=== PATIENT | female | born 1960 | race Caucasian/White ===

== ENCOUNTER 2019-01-13 09:36 | Inpatient (IN) | payer BC ==
[2019-01-13 10:05] VITALS: BMI 34.7
--- NOTE | 2019-01-13 12:52 | HP ---
CIWA Score Nausea/Vomitin Muscle Tremors: 2 Anxiety: 4-Mod. Anxious/Guarded Agitation: 4-Moderately Restless Paroxysmal Sweats: No Perspiration Orientation: 1-Uncertain about Date Tacttile Disturbances: 0-None Auditory Disturbances: 0-None Visual Disturbances: 0-None Headache: 0-None Present CIWA-Ar Total Score: 13 - Admission Criteria OASAS Guidelines: Admission for Medically Managed Detox: Requires at least one of the followin. CIWA greater than 12 2. Seizures within the past 24 hours 3. Delirium tremens within the past 24 hours 4. Hallucinations within the past 24 hours 5. Acute intervention needed for co occurring medical disorder 6. Acute intervention needed for co occurring psychiatric disorder 7. Severe withdrawal that cannot be handled at a lower level of care (continued vomiting, continued diarrhea, abnormal vital signs) requiring intravenous medication and/or fluids 8. Admission ROS BHS - HPI Allergies/Adverse Reactions: Allergies Allergy/AdvReac Type Severity Reaction Status Date / Time No Known Allergies Allergy Verified 01/13/19 09:57 History of Present Illness: 58 y.o. female reports 1 bottle rum x 3 x 12-pk and 1 bottle wine in the last 5 days , prior sobriety intermittently x 3 years first age of use teens , increased since late 20's , denies seizures , denies blackouts , + tremors if not drinking , starts drinking "around the clock since Saturday " , current SHELBY 0.223 , latest use this morning, currently tearful and upset. 1/2 ppd PMHX ;OCD , panic d/o , depression denies SA , reports current depression SI since her father in 2015 , previously on Lexapro stopped taking meds , reports d/c from program where she saw psychiatrist x once due to relapse PSHx : cervical conization Exam Limitations: Clinical Condition, Intoxication - Ebola screening Have you traveled outside of the country in the last 21 days: No Have you had contact with anyone from an Ebola affected area: No - Review of Systems Constitutional: Loss of Appetite EENT: reports: Other (glasses) Respiratory: reports: Shortness of Breath (reports 2/2 panic d/o) Cardiac: reports: No Symptoms Reported GI: reports: See HPI, Diarrhea, Poor Appetite : reports: No Symptoms Reported Musculoskeletal: reports: Back Pain Integumentary: reports: No Symptoms Reported Neuro: reports: See HPI Endocrine: reports: No Symptoms Reported Psychiatric: reports: Orientated x3, Agitated, Anxious, Depressed Patient History - Smoking Cessation Smoking history: Current every day smoker Have you smoked in the past 12 months: Yes Hx Chewing Tobacco Use: No Initiated information on smoking cessation: No - Substances abused Alcohol Substance route: Oral Frequency: Daily Amount used: 16OZ BOTTLE OF RUM/ 3-12PCKS BEER Age of first use: 14 Date of last use: 01/13/19 Family Disease History - Family Disease History Family History: Unable to Obtain (adopted) Admission Physical Exam BHS - Vital Signs Vital Signs: Vital Signs - 24 hr 01/13/19 01/13/19 09:57 11:59 Temperature 98 F 98 F Pulse Rate 83 83 Respiratory 18 18 Rate Blood Pressure 162/103 H 162/103 H - Physical General Appearance: Yes: Moderate Distress, Intoxicated, Anxious HEENTM: Yes: EOMI, Hearing grossly Normal, Normocephalic, Normal Voice Respiratory: Yes: Chest Non-Tender, Lungs Clear, Normal Breath Sounds, No Respiratory Distress, No Accessory Muscle Use Neck: Yes: No masses,lesions,Nodules, Trachea in good position Cardiology: Yes: Regular Rhythm, Regular Rate, S1, S2 Abdominal: Yes: Non Tender, Soft, Protuberent Musculoskeletal: Yes: Gait Steady Extremities: Yes: Normal Range of Motion, Non-Tender Neurological: Yes: Alert, Motor Strength 5/5, Depressed Affect Integumentary: Yes: Warm - Diagnostic (1) Alcohol intoxication Current Visit: Yes Status: Acute Qualifiers: Complication of substance-induced condition: uncomplicated Qualified Code(s ): F10.920 - Alcohol use, unspecified with intoxication, uncomplicated Breathalyzer - Breathalyzer Breathalyzer: 0.223 Urine Drug Screen - Test Device Lot number: [id number] Expiration date: 09/26/20 - Control Is test valid?: Yes - Results Drug screen NEGATIVE: Yes Inpatient Rehab Admission - Rehab Decision to Admit Inpatient rehab admission?: No
[2019-01-13] MEDS ORDERED: MELATONIN 5 MG TABLETS PO PRN (13:29)
[2019-01-13] MEDS ORDERED: IBUPROFEN 400 MG TABLET (FP) PO PRN (13:29)
[2019-01-13] MEDS ORDERED: MENTHOL/PHENOL 1 EACH UD MM PRN (13:29)
[2019-01-13] MEDS ORDERED: MAG HYDROX/AL HYDROX/SIMETH 30 ML UNIT-DOSE CUP PO PRN (13:29)
[2019-01-13] MEDS ORDERED: MAGNESIUM CITRATE 300 ML BOTTLE PO PRN (13:29)
[2019-01-13] MEDS ORDERED: ACETAMINOPHEN 325 MG TABLET (FP) PO PRN ×2 (13:29)
[2019-01-13] MEDS ORDERED: MAGNESIUM HYDROX 2400MG/30ML ORAL SUSPENSION 30 ML CUP PO PRN (13:29)
[2019-01-13] MEDS ORDERED: chlordiazePOXIDE HCL 25 MG CAPSULE PO ONE (13:30)
[2019-01-13] MEDS ORDERED: chlordiazePOXIDE HCL 25 MG CAPSULE PO PRN (13:30)
[2019-01-13] MEDS: hydrOXYzine PAMOATE 25 MG CAPSULE (FP) PO PRN (14:52)
[2019-01-13] MEDS: chlordiazePOXIDE HCL 25 MG CAPSULE PO SCH ×2 (17:55→22:14)
[2019-01-13] MEDS: THIAMINE HCL 100 MG TABLET (FP) PO SCH (22:14)
[2019-01-13] MEDS: METHOCARBAMOL 500 MG TABLET PO PRN (22:14)
[2019-01-13] MEDS: BISMUTH SUBSALICYLATE 524 MG/30 ML UD PO PRN (22:51)
[2019-01-14] MEDS: BISMUTH SUBSALICYLATE 524 MG/30 ML UD PO PRN ×3 (02:38→13:27)
[2019-01-14] MEDS: chlordiazePOXIDE HCL 25 MG CAPSULE PO SCH ×4 (06:43→22:41)
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
[2019-01-14 09:50] LABS: HEMATOCRIT 38.2 % (32.4-45.2); HEMOGLOBIN 13.2 GM/dL (10.7-15.3); MCH 31.1 pg (25.7-33.7); MCHC 34.5 g/dl (32.0-36.0); MEAN CELL VOLUME 90.1 fl (80-96); MEAN PLT VOLUME 6.9 fl (7.5-11.1); PLATELET COUNT 230 K/MM3 (134-434); RBC 4.23 M/mm3 (3.60-5.2); RDW 13.5 % (11.6-15.6); WHITE BLOOD COUNT 5.9 K/mm3 (4.0-10.0)
[2019-01-14 10:01] LABS: BLOOD UREA NITROGEN 8.8 mg/dL (7-18); CREATININE 0.8 mg/dL (0.55-1.3); TOT PROT 6.9 g/dl (6.4-8.2)
[2019-01-14] MEDS: METHOCARBAMOL 500 MG TABLET PO PRN (10:30)
[2019-01-14] MEDS: hydrOXYzine PAMOATE 25 MG CAPSULE (FP) PO PRN ×2 (10:30→16:54)
[2019-01-14] MEDS: PRENATAL VITAMINS W/ FOLIC ACID TABLET (FP) PO SCH (11:46)
--- NOTE | 2019-01-14 12:28 | PN ---
S CIWA - CIWA Score Nausea/Vomitin-No Nausea/No Vomiting Muscle Tremors: 3 Anxiety: 4-Mod. Anxious/Guarded Agitation: 4-Moderately Restless Paroxysmal Sweats: 3 Orientation: 0-Oriented Tacttile Disturbances: 0-None Auditory Disturbances: 0-None Visual Disturbances: 0-None Headache: 0-None Present CIWA-Ar Total Score: 14 BHS Progress Note (SOAP) Subjective: agitation restless irritable body aches anxiety interrupted sleep Objective: 01/14/19 12:28 Vital Signs Temperature 97.9 F 01/14/19 09:23 Pulse Rate 79 01/14/19 09:23 Respiratory Rate 18 01/14/19 09:23 Blood Pressure 146/89 01/14/19 09:23 O2 Sat by Pulse Oximetry (%) Laboratory Tests 01/14/19 01/14/19 01/14/19 08:20 08:20 08:20 WBC 5.9 RBC 4.23 Hgb 13.2 Hct 38.2 MCV 90.1 MCH 31.1 MCHC 34.5 RDW 13.5 Plt Count 230 MPV 6.9 L Sodium 136 Potassium 4.0 Chloride 101 Carbon Dioxide 29 Anion Gap 6 L BUN 8.8 Creatinine 0.8 Est GFR (CKD-EPI)AfAm 95.52 Est GFR (CKD-EPI)NonAf 82.42 Random Glucose 89 Calcium 9.0 Total Bilirubin 1.0 AST 19 ALT 21 Alkaline Phosphatase 119 H Total Protein 6.9 Albumin 4.0 RPR Titer Nonreactive labs noted aaox3 ambulating no acute distress Assessment: 01/14/19 12:28 withdrawals Plan: continue detox increase fluids
[2019-01-14] MEDS: THIAMINE HCL 100 MG TABLET (FP) PO SCH (22:42)
[2019-01-14] MEDS: ESCITALOPRAM OXALATE 10 MG TABLET (FP) PO SCH (22:42)
[2019-01-15] MEDS: chlordiazePOXIDE HCL 25 MG CAPSULE PO SCH ×4 (06:02→22:32)
[2019-01-15] MEDS: hydrOXYzine PAMOATE 25 MG CAPSULE (FP) PO PRN ×3 (06:04→20:33)
[2019-01-15] MEDS: PRENATAL VITAMINS W/ FOLIC ACID TABLET (FP) PO SCH (11:20)
[2019-01-15] MEDS: METHOCARBAMOL 500 MG TABLET PO PRN ×2 (11:21→17:18)
--- NOTE | 2019-01-15 15:06 | PN ---
S CIWA - CIWA Score Nausea/Vomitin-No Nausea/No Vomiting Muscle Tremors: 3 Anxiety: 3 Agitation: 3 Paroxysmal Sweats: 3 Orientation: 0-Oriented Tacttile Disturbances: 0-None Auditory Disturbances: 0-None Visual Disturbances: 0-None Headache: 0-None Present CIWA-Ar Total Score: 12 BHS Progress Note (SOAP) Subjective: sweats anxiety restless Objective: 01/15/19 15:02 Vital Signs Temperature 98.2 F 01/15/19 14:04 Pulse Rate 80 01/15/19 14:04 Respiratory Rate 01/15/19 14:04 Blood Pressure 134/80 01/15/19 14:04 O2 Sat by Pulse Oximetry (%) Laboratory Tests 01/14/19 01/14/19 01/14/19 08:20 08:20 08:20 WBC 5.9 RBC 4.23 Hgb 13.2 Hct 38.2 MCV 90.1 MCH 31.1 MCHC 34.5 RDW 13.5 Plt Count 230 MPV 6.9 L Sodium 136 Potassium 4.0 Chloride 101 Carbon Dioxide 29 Anion Gap 6 L BUN 8.8 Creatinine 0.8 Est GFR (CKD-EPI)AfAm 95.52 Est GFR (CKD-EPI)NonAf 82.42 Random Glucose 89 Calcium 9.0 Total Bilirubin 1.0 AST 19 ALT 21 Alkaline Phosphatase 119 H Total Protein 6.9 Albumin 4.0 RPR Titer Nonreactive labs noted aaox3 ambulating no acute distress Assessment: 01/15/19 15:02 mild withdrawals Plan: continue detox with modified detox pt requesting to be d/c on saturday instead of saturday. d/c for saturday.
[2019-01-15] MEDS: ESCITALOPRAM OXALATE 10 MG TABLET (FP) PO SCH (22:31)
[2019-01-15] MEDS: THIAMINE HCL 100 MG TABLET (FP) PO SCH (22:31)
[2019-01-16] MEDS ORDERED: chlordiazePOXIDE HCL 10 MG CAPSULE PO PRN
[2019-01-16] MEDS: METHOCARBAMOL 500 MG TABLET PO PRN ×4 (01:03→22:39)
[2019-01-16] MEDS: hydrOXYzine PAMOATE 25 MG CAPSULE (FP) PO PRN ×2 (06:31→15:53)
[2019-01-16] MEDS: chlordiazePOXIDE HCL 10 MG CAPSULE PO SCH ×4 (06:31→22:38)
[2019-01-16] MEDS: PRENATAL VITAMINS W/ FOLIC ACID TABLET (FP) PO SCH (10:31)
--- NOTE | 2019-01-16 10:57 | PN ---
BHS CIWA - CIWA Score Nausea/Vomitin-No Nausea/No Vomiting Muscle Tremors: 1-None Visible, but [place] Anxiety: 1-Mildly Anxious Agitation: 1-Slight > Activity Paroxysmal Sweats: No Perspiration Orientation: 0-Oriented Tacttile Disturbances: 0-None Auditory Disturbances: 0-None Visual Disturbances: 0-None Headache: 0-None Present CIWA-Ar Total Score: 3 BHS Progress Note (SOAP) Subjective: feeling much better little anxiety i am ready to go home tomorrow Objective: 01/16/19 10:56 Vital Signs Temperature 98.0 F 01/16/19 09:57 Pulse Rate 77 01/16/19 09:57 Respiratory Rate 18 01/16/19 09:57 Blood Pressure 151/94 01/16/19 09:57 O2 Sat by Pulse Oximetry (%) Laboratory Tests 01/14/19 01/14/19 01/14/19 08:20 08:20 08:20 WBC 5.9 RBC 4.23 Hgb 13.2 Hct 38.2 MCV 90.1 MCH 31.1 MCHC 34.5 RDW 13.5 Plt Count 230 MPV 6.9 L Sodium 136 Potassium 4.0 Chloride 101 Carbon Dioxide 29 Anion Gap 6 L BUN 8.8 Creatinine 0.8 Est GFR (CKD-EPI)AfAm 95.52 Est GFR (CKD-EPI)NonAf 82.42 Random Glucose 89 Calcium 9.0 Total Bilirubin 1.0 AST 19 ALT 21 Alkaline Phosphatase 119 H Total Protein 6.9 Albumin 4.0 RPR Titer Nonreactive labs noted aaox3 ambulating no acute distress Assessment: 01/16/19 10:56 mild withdrawals Plan: continue with detox increase fluids d/c in am
[2019-01-16] MEDS: ESCITALOPRAM OXALATE 10 MG TABLET (FP) PO SCH (22:36)
[2019-01-16] MEDS: THIAMINE HCL 100 MG TABLET (FP) PO SCH (22:36)
[2019-01-17] MEDS: hydrOXYzine PAMOATE 25 MG CAPSULE (FP) PO PRN (04:51)
[2019-01-17] MEDS ORDERED: chlordiazePOXIDE HCL 10 MG CAPSULE PO SCH (05:00)
[2019-01-17 09:49] VITALS: BP 155/92; PULSE 77; TEMP 97.2
[2019-01-17] MEDS: PRENATAL VITAMINS W/ FOLIC ACID TABLET (FP) PO SCH (10:26)
--- NOTE | 2019-01-17 13:13 | DS ---
[facility] Detox Discharge Summary Admission Date: 01/13/19 Discharge Date: 01/17/19 - History Present History: Alcohol Dependence Additional Comments: Pt is medically cleared and is discharged today. Pt completed her detox protocol. Pt is encouraged to follow-up with outpatient CD program and also to follow-up with her PMD. Pt verbalized understanding. Pt is alert and oriented x3 and in no respiratory distress. Pertinent Past History: H/o alcohol use disorder. - Physical Exam Results Vital Signs: Vital Signs Temperature 97.2 F L 01/17/19 09:49 Pulse Rate 77 01/17/19 09:49 Respiratory Rate 18 01/17/19 09:49 Blood Pressure 155/92 01/17/19 09:49 O2 Sat by Pulse Oximetry (%) Vital Signs 01/17/19 01/17/19 06:00 09:49 Temperature 96.4 F L 97.2 F L Pulse Rate 68 77 Respiratory 18 18 Rate Blood Pressure 133/83 155/92 Lab Results WBC 5.9 K/mm3 (4.0-10.0) 01/14/19 08:20 RBC 4.23 M/mm3 (3.60-5.2) 01/14/19 08:20 Hgb 13.2 GM/dL (10.7-15.3) 01/14/19 08:20 Hct 38.2 % (32.4-45.2) 01/14/19 08:20 MCV 90.1 fl (80-96) 01/14/19 08:20 MCHC 34.5 g/dl (32.0-36.0) 01/14/19 08:20 RDW 13.5 % (11.6-15.6) 01/14/19 08:20 Plt Count 230 K/MM3 (134-434) 01/14/19 08:20 Sodium 136 mmol/L (136-145) 01/14/19 08:20 Potassium 4.0 mmol/L (3.5-5.1) 01/14/19 08:20 Chloride 101 mmol/L (98-107) 01/14/19 08:20 Carbon Dioxide 29 mmol/L (21-32) 01/14/19 08:20 Anion Gap 6 MMOL/L (8-16) L 01/14/19 08:20 BUN 8.8 mg/dL (7-18) 01/14/19 08:20 Creatinine 0.8 mg/dL (0.55-1.3) 01/14/19 08:20 Random Glucose 89 mg/dL (74-106) 01/14/19 08:20 Calcium 9.0 mg/dL (8.5-10.1) 01/14/19 08:20 Labs noted. Pertinent Admission Physical Exam Findings: withdrawal symptoms. - Treatment Hospital Course: Detox Protocol Followed, Detoxed Safely, Responded well, Discharged Condition Good - Medication Discharge Medications: Ambulatory Orders Clonidine HCl 0.1 mg PO TID PRN 01/13/19 Escitalopram Oxalate [Lexapro -] 10 mg PO HS 01/13/19 hydrOXYzine HCL [Atarax -] 50 mg PO QID 01/13/19 - Diagnosis (1) Uncomplicated alcohol dependence Status: Acute (2) Nicotine dependence Status: Chronic (3) History of conization of cervix Status: Resolved - AMA Did Patient Leave Against Medical Advice: No BHS CIWA - CIWA Score Nausea/Vomitin-No Nausea/No Vomiting Muscle Tremors: None Anxiety: 3 Agitation: 0-Normal Activity Paroxysmal Sweats: No Perspiration Orientation: 0-Oriented Tacttile Disturbances: 0-None Auditory Disturbances: 0-None Visual Disturbances: 0-None Headache: 0-None Present CIWA-Ar Total Score: 3
[2019-01-18] MEDS ORDERED: chlordiazePOXIDE HCL 10 MG CAPSULE PO ONE (05:00)
== END 2019-01-17 10:13 | disposition home or self-care (01) | DRG 897 ==
LOC: YASAS 09:36 → Y6N 13:48
PROVIDERS: ADMIT Surgery; ATTEND Surgery
PROC: HZ2ZZZZ Detoxification Services for Substance Abuse Treatment (ICD-10-PCS; principal; 2019-01-13)
DX: F10.230 Alcohol dependence with withdrawal, uncomplicated (principal); F17.210 Nicotine dependence, cigarettes, uncomplicated; F42.9 Obsessive-compulsive disorder, unspecified; F41.9 Anxiety disorder, unspecified; Z98.890 Other specified postprocedural states
CPT/HCPCS: 36415; 80053; 85027; 86593

== ENCOUNTER 2023-03-12 20:04 | Inpatient (IN) | payer OTHER ==
[2023-03-12 21:22] VITALS: BMI 32.5
[2023-03-12] MEDS ORDERED: TRIMETHOBENZAMIDE HCL 200MG/2ML INJ IM ONE ×2 (22:27→23:21)
[2023-03-12] MEDS ORDERED: METOPROLOL TARTRATE 50 MG TABLET (FP) PO ONE (22:27)
[2023-03-12] MEDS ORDERED: POLYETHYLENE GLYCOL (HEALTHYLAX) 3350 17 GM PACKET PO PRN (22:34)
[2023-03-12] MEDS ORDERED: P-EPHED 60MG/TRIPROLIDI 2.5MG TABLET PO PRN (22:34)
[2023-03-12] MEDS ORDERED: BENZOCAINE/MENTHOL (CHLORASEPTIC ) LOZENGE MM PRN (22:34)
[2023-03-12] MEDS ORDERED: BISMUTH SUBSALICYLATE 524 MG/30 ML PO PRN (22:34)
[2023-03-12] MEDS ORDERED: MAG HYDROX/AL HYDROX/SIMETH 30 ML UNIT-DOSE CUP PO PRN (22:34)
[2023-03-12] MEDS ORDERED: IBUPROFEN 400 MG TABLET (FP) PO PRN (22:34)
[2023-03-12] MEDS ORDERED: ACETAMINOPHEN 325 MG TABLET (FP) PO PRN (22:34)
[2023-03-12] MEDS ORDERED: METHOCARBAMOL 500 MG TABLET PO PRN (22:34)
[2023-03-12] MEDS ORDERED: NICOTINE POLACRILEX 2 MG GUM BUC PRN (22:34)
[2023-03-12] MEDS ORDERED: guaiFENesin 600 MG TABLET.ER (FP) PO PRN (22:34)
[2023-03-12] MEDS ORDERED: MAGNESIUM HYDROX 2400MG/30ML ORAL SUSPENSION 30 ML CUP PO PRN (22:34)
[2023-03-12] MEDS ORDERED: IBUPROFEN 600 MG TABLET (FP) PO PRN (22:34)
[2023-03-12] MEDS ORDERED: DICYCLOMINE HCL 10 MG CAPSULE PO PRN (22:34)
[2023-03-12] MEDS ORDERED: ONDANSETRON *ODT* 4 MG TABLET SL PRN (22:34)
[2023-03-12] MEDS ORDERED: BENZONATATE 200 MG CAPSULE PO PRN (22:34)
[2023-03-12] MEDS ORDERED: METOPROLOL TARTRATE 25 MG TABLET (FP) ONE (23:21)
[2023-03-12] MEDS ORDERED: chlordiazePOXIDE HCL 25 MG CAPSULE ONE (23:21)
[2023-03-12] MEDS: chlordiazePOXIDE HCL 25 MG CAPSULE PO SCH (23:31)
[2023-03-13] MEDS: chlordiazePOXIDE HCL 25 MG CAPSULE PO SCH ×4 (05:25→22:23)
[2023-03-13] MEDS: PRENATAL VITAMINS W/ FOLIC ACID TABLET (FP) PO SCH (10:01)
[2023-03-13] MEDS: hydrOXYzine PAMOATE 25 MG CAPSULE (FP) PO PRN ×2 (10:04→14:14)
[2023-03-13] MEDS: FLUoxetine HCL 20 MG CAPSULE PO SCH (10:04)
[2023-03-13 10:55] LABS: HEMATOCRIT 39.8 % (32.4-45.2); HEMOGLOBIN 13.6 GM/dL (10.7-15.3); MCH 31.3 pg (25.7-33.7); MCHC 34.2 g/dl (32.0-36.0); MEAN CELL VOLUME 91.5 fl (80-96); MEAN PLT VOLUME 7.1 fl (7.5-11.1); PLATELET COUNT 230 10^3/uL (134-434); RBC 4.35 M/mm3 (3.60-5.2); RDW 15.7 % (11.6-15.6); WHITE BLOOD COUNT 6.4 K/mm3 (4.0-10.0)
[2023-03-13 11:07] LABS: POTASSIUM 4.2 mmol/L (3.5-5.1)
[2023-03-13 11:30] LABS: CALCIUM 8.9 mg/dL (8.5-10.1)
[2023-03-13 11:31] LABS: BLOOD UREA NITROGEN 14.6 mg/dL (7-18)
[2023-03-13] MEDS ORDERED: cloNIDine HCL 0.1 MG TABLET PO PRN (11:32)
[2023-03-13 11:34] LABS: CREATININE 0.9 mg/dL (0.55-1.3)
[2023-03-13 11:35] LABS: TOT PROT 7.4 g/dl (6.4-8.2)
[2023-03-13 11:37] LABS: BILIRUBIN,TOTAL 2.6 mg/dL (0.2-1)
[2023-03-13] MEDS: LOPERAMIDE HCL 2 MG CAPSULE PO PRN (13:12)
[2023-03-13] MEDS: chlordiazePOXIDE HCL 25 MG CAPSULE PO PRN ×2 (13:13→19:04)
[2023-03-13] MEDS: GABAPENTIN 300 MG CAPSULE PO SCH ×2 (14:14→22:22)
[2023-03-13] MEDS: THIAMINE HCL 100 MG TABLET (FP) PO SCH (22:22)
[2023-03-13] MEDS: MELATONIN 5 MG TABLETS PO SCH (22:22)
[2023-03-14] MEDS: chlordiazePOXIDE HCL 25 MG CAPSULE PO SCH ×4 (05:51→23:21)
[2023-03-14] MEDS: GABAPENTIN 300 MG CAPSULE PO SCH ×3 (05:51→22:20)
[2023-03-14] MEDS: FLUoxetine HCL 20 MG CAPSULE PO SCH (10:20)
[2023-03-14] MEDS: PRENATAL VITAMINS W/ FOLIC ACID TABLET (FP) PO SCH (10:20)
[2023-03-14] MEDS: hydrOXYzine PAMOATE 25 MG CAPSULE (FP) PO PRN ×2 (15:10→17:28)
[2023-03-14] MEDS: LOPERAMIDE HCL 2 MG CAPSULE PO PRN (15:10)
[2023-03-14] MEDS: MELATONIN 5 MG TABLETS PO SCH (22:20)
[2023-03-14] MEDS: THIAMINE HCL 100 MG TABLET (FP) PO SCH (22:21)
[2023-03-15] MEDS ORDERED: chlordiazePOXIDE HCL 10 MG CAPSULE PO PRN
[2023-03-15] MEDS: chlordiazePOXIDE HCL 10 MG CAPSULE PO SCH ×4 (05:33→22:21)
[2023-03-15] MEDS: GABAPENTIN 300 MG CAPSULE PO SCH ×3 (05:41→22:21)
[2023-03-15] MEDS: FLUoxetine HCL 20 MG CAPSULE PO SCH (10:12)
[2023-03-15] MEDS: PRENATAL VITAMINS W/ FOLIC ACID TABLET (FP) PO SCH (10:12)
[2023-03-15] MEDS: hydrOXYzine PAMOATE 25 MG CAPSULE (FP) PO PRN (17:22)
[2023-03-15] MEDS: THIAMINE HCL 100 MG TABLET (FP) PO SCH (22:20)
[2023-03-15] MEDS: MELATONIN 5 MG TABLETS PO SCH (22:20)
[2023-03-16] MEDS ORDERED: chlordiazePOXIDE HCL 10 MG CAPSULE PO SCH (05:00)
[2023-03-16] MEDS: GABAPENTIN 300 MG CAPSULE PO SCH (05:33)
[2023-03-16 06:41] VITALS: RESP 18
[2023-03-16] MEDS: PRENATAL VITAMINS W/ FOLIC ACID TABLET (FP) PO SCH (09:06)
[2023-03-16] MEDS: FLUoxetine HCL 20 MG CAPSULE PO SCH (09:06)
[2023-03-16] MEDS: hydrOXYzine PAMOATE 25 MG CAPSULE (FP) PO PRN (09:06)
[2023-03-16 09:17] VITALS: BP 147/78; PULSE 75; TEMP 97.5
[2023-03-17] MEDS ORDERED: chlordiazePOXIDE HCL 10 MG CAPSULE PO ONE (05:00)
== END 2023-03-16 10:16 | disposition home or self-care (01) | DRG 775 ==
LOC: YASAS 20:04 → Y6N 23:03 → UNDODISIN 03-14 14:00
PROVIDERS: ADMIT Allergy & Immunology; ATTEND Surgery
PROC: HZ2ZZZZ Detoxification Services for Substance Abuse Treatment (ICD-10-PCS; principal; 2023-03-12)
DX: F10.230 Alcohol dependence with withdrawal, uncomplicated (principal); F17.210 Nicotine dependence, cigarettes, uncomplicated; F10.280 Alcohol dependence with alcohol-induced anxiety disorder; F10.282 Alcohol dependence with alcohol-induced sleep disorder; F10.24 Alcohol dependence with alcohol-induced mood disorder; F41.9 Anxiety disorder, unspecified
CPT/HCPCS: 36415; 80053; 80307; 85027; 86780; 87635